=== PATIENT | female | born 1930 | race Caucasian/White ===

== ENCOUNTER 2017-06-24 23:46 | Inpatient (IN) | payer MEDICARE, MEDICAID ==
[2017-06-25 00:48] LABS: Bilirubin Negative (Negative); Blood, Urine Negative (Negative); Clarity TURBID (Clear); Glucose, Urine (Dipstick) Negative (Negative); Leukocyte Large (Negative); Nitrite Negative (Negative); Protein, Urine (Dipstick) > or equal to 300 mg/dL (Neg-Trace); Specific Gravity, Urine 1.017 (1.002-1.036); Urobilinogen 0.2 mg/dL (0.2-1.0); pH, Urine 8.5 (5.0-9.0)
[2017-06-25 00:49] LABS: Bacteria/HPF None Seen HPF (None Seen)
[2017-06-25 00:51] LABS: Pathc Cast-AUWi Flag 144.19 (0-2.49); Yeast-AUWi Flag 839.9 (0-25.0)
[2017-06-25 00:55] LABS: Yeast-All Forms None Seen HPF (None Seen)
[2017-06-25 00:57] LABS: Crystals/HPF 3+ TRIPLE PHOS HPF (Negative); Hyaline Casts/LPF 0-3 HYALINE CAST LPF (0-3 Hyaline); RBC/HPF 0-3 HPF (0-3); Renal Epithelial None Seen HPF (0-3); Transitional Epithelial NONE SEEN HPF (0-3)
[2017-06-25] MEDS ORDERED: Ondansetron ODT 4 MG TAB SL PRN (04:26)
[2017-06-25] MEDS ORDERED: Ondansetron HCl/PF 4 MG/2 ML Vial IVP PRN ×2 (04:26→07:16)
[2017-06-25] MEDS ORDERED: Sodium Chloride 0.9% 1,000 ML IV SCH (04:27)
[2017-06-25] MEDS: Carbidopa/Levodopa CR 50-200 mg Tablet PO SCH ×4 (07:00→21:13)
[2017-06-25] MEDS: Dextrose 5 %-0.45 % NaCl 1,000 ML IV SCH ×2 (07:10→21:10)
[2017-06-25] MEDS ORDERED: Senokot 8.6 MG TAB PO PRN (07:16)
[2017-06-25] MEDS ORDERED: Loratadine 10 MG TAB PO PRN (07:16)
[2017-06-25] MEDS ORDERED: Sodium Chloride 0.65% Nasal 44 ML BOT EA NARE PRN (07:16)
[2017-06-25] MEDS ORDERED: HYDROcodone/Acetaminophen 5/325 mg Tablet PO PRN (07:16)
[2017-06-25] MEDS ORDERED: Chloraseptic Spray 180 ml Bottle PO PRN (07:16)
[2017-06-25] MEDS ORDERED: cloNIDine 0.1 MG TAB PO PRN (07:16)
[2017-06-25] MEDS ORDERED: Diabetic Tussin 200 MG/10 ML UDCUP PO PRN (07:16)
[2017-06-25] MEDS ORDERED: Loperamide HCl 2 MG CAP PO PRN (07:16)
[2017-06-25] MEDS ORDERED: Simethicone Chewable 80 MG TAB PO PRN (07:16)
[2017-06-25] MEDS ORDERED: Eucerin (Mineral Oil/Petrolatum,White) 30 gm Jar TOP PRN (07:16)
[2017-06-25] MEDS ORDERED: Milk Of Magnesia 30 ML UDCUP PO PRN (07:16)
[2017-06-25] MEDS ORDERED: Ondansetron ODT 4 MG TAB PO PRN (07:16)
[2017-06-25] MEDS ORDERED: hydrALAZINE 20 MG/ML VIAL SLOW IVP PRN (07:16)
[2017-06-25] MEDS ORDERED: Mag-Al 1200 mg/1200 mg/30 ML UDCUP PO PRN (07:16)
[2017-06-25] MEDS ORDERED: Artificial Tears 18 DROP/0.9 ML EA EYE PRN (07:16)
[2017-06-25] MEDS ORDERED: Acetaminophen 325 MG TAB PO PRN (07:16)
[2017-06-25] MEDS ORDERED: traMADol HCl 50 MG TAB PO PRN (07:16)
[2017-06-25] MEDS ORDERED: Famotidine 20 MG TAB PO SCH (09:00)
--- NOTE | 2017-06-25 12:11 | HP ---
PRIMARY CARE PHYSICIAN: Dr. Marla Lay. REASON FOR ADMISSION: Transfer from [place] [facility] for altered mental status. HISTORY OF PRESENT ILLNESS: This is an 86-year-old female, who lives [facility] the [facility] in [place] . From there, she was taken to [facility] for altered mental status. The patient is no t able to provide any history. The patient was taken to [facility] and she was found wi th urinary tract infection. Based on lab testing, she was also found clinically dehydrated. Patient was hypertensive and febrile. She was saturating 88% on room air and temperature was 100.4 and bloo d pressure was 211/91. The patient was given Rocephin and vancomycin, and subsequently, this patient was transferred to our emergency room for admission. In our emergency room, patient was not able to provide any history. She was still hypertensive. Subsequently, this patient was admitted to [facility] floor. REVIEW OF SYSTEMS: All review of systems tried to review with the patient, but unable to review at t his point, because of altered mental status. ALLERGIES: ASPIRIN, PENICILLIN, PLAVIX, IODINE. The patient is not able to get MRI, because of metal above the left eye. CURRENT HOME MEDICATIONS: Lipitor 40 mg p.o. daily, carbidopa/levodopa 25/100 one tablet 3 times lio ly, Cardizem-CD 240 mg p.o. daily, Synthroid 88 mcg p.o. daily, digoxin 125 mcg p.o. daily, ferrous s ulfate 325 mg p.o. daily, MiraLax 17 grams p.o. daily, potassium chloride 20 mEq p.o. daily, vitamin D3 2000 units p.o. daily, Xarelto 20 mg p.o. daily, Remeron 15 mg p.o. daily, Aricept 5 mg p.o. daily , ranitidine 150 mg p.o. daily. PAST MEDICAL HISTORY: Osteoarthritis, osteoporosis, hypertension, atrial fibrillation, chronic antic oagulation, history of CVA, Parkinson's disease, dementia, hypothyroidism, dyslipidemia, gastroesopha geal reflux disease, chronic deconditioning. PAST SURGICAL HISTORY: Breast augmentation. Hip surgery. PAST PSYCHIATRIC HISTORY: Anxiety and depression. SOCIAL HISTORY: [facility]. No history of tobacco, alcohol, or illicit drug abus e. FAMILY HISTORY: No strong family history of premature coronary artery disease, stroke, or cancer. EMERGENCY ROOM COURSE: Patient is given vancomycin and Rocephin at [facility]. PHYSICAL EXAMINATION: VITAL SIGNS: On arrival to [place] [facility], blood pressure 211/91, pulse 77, respiratory rat e 24, temperature 100.4, saturation 88% on room air, weight 53.9 kilograms. GENERAL: Patient is currently hypertensive, ill-appearing, not following any command. HEENT: Head: Normocephalic, atraumatic. Eyes: Pupils round, reactive to light. No nystagmus. EN T: Dry mucous membrane, no oral lesion, no pharyngeal erythema, no exudate. NECK: Supple, no JVD, no thyromegaly, no carotid bruit, no jugular venous distention. LUNGS: Clear to auscultation, though air entry reduced on both sides at base. No wheeze, no rhonchi , no rales. No accessory muscles of respiration in use. CARDIAC: S1 and S2 appear regular. Pacemaker in place in right chest wall. ABDOMEN: Soft, bowel sounds present, nontender, nondistended. Bowel sounds present, no organomegaly , no mass. GENITOURINARY: Harrison catheter in place. BACK EXAMINATION: Unremarkable. No CVA tenderness. EXTREMITIES: Upper extremities, passive movement of all joints are normal. Lower extremities: Pass rell movement of all joints are normal. No edema. Good peripheral pulsation. SKIN: No skin rash. HEMATOLOGICAL SYSTEM: No lymphadenopathy. PSYCHIATRIC: Flat affect. NEUROLOGIC: She is moving all 4 limbs. Detailed neurological examination is not possible, because s he is not following any command. SIGNIFICANT LABORATORY DATA: EKG showing pacemaker rhythm. CT brain, based on my review, no acute i ntracranial process, age appropriate atrophy, chronic small vessel ischemic changes. Abdomen and pel vis CT scan showing moderate-sized hiatal hernia with thickening of the prasad of the stomach. Large amount of fecal material in colon, constipation, calcification of pancreatic head. Chest x-ray, base d on my review, no acute cardiopulmonary process, osteopenia, pacemaker in place. CBC: WBC 7.7, hemoglobin 14.9, platelet 278 with bandemia. VBG: pH 7.38, CO2 of 45.2, bicarbonate 26, O2 of 62.7. BMP: Sodium 143, potassium 4.8, chloride 10 6, carbon dioxide 27, anion gap 15, BUN 22, creatinine 0.99, glucose 128, calcium 10.1. Lactic acid 2.1. LFT: AST 23, ALT 7, alkaline phosphatase 68, albumin 3.7, CK-MB 1.9, troponin I 0.015. Urinalysis s uggestive of urinary tract infection. ASSESSMENT AND PLAN: 1. Acute encephalopathy, multifactorial etiology including urinary tract infection and dehydration. 2. Urinary tract infection. We will continue levofloxacin IV daily. Follow up on urine culture res ult and modify antibiotic therapy based on culture and sensitivity result. 3. Stercoral colitis with severe constipation. We will give her Fleet enema. 4. Moderate hiatal hernia with thickening wall of the stomach. We will continue Pepcid 20 mg IV b.i .d. 5. Parkinson's disease. Continue Sinemet-CR 25/100 one tablet q.i.d. 6. Dementia. Continue Aricept 5 mg p.o. at bedtime. 7. Atrial fibrillation, currently rate controlled. Continue digoxin 0.125 mg p.o. daily, Cardizem-C D 240 mg p.o. daily along with chronic anticoagulation with Xarelto 20 mg p.o. daily. 8. History of sick sinus syndrome with pacemaker. 9. Hypothyroidism. Continue Synthroid 88 mcg p.o. daily. 10. Dyslipidemia. Continue Lipitor 40 mg p.o. at bedtime. 11. Bandemia, likely related with underlying infection. 12. Dehydration. Patient will be given IV fluid with dextrose half-normal saline at 75 mL per hour. 13. Moderate protein-calorie malnutrition. The patient will be given nutritional supplement when pa nannt able to take p.o. 14. Deep venous thrombosis prophylaxis. Patient is already on Xarelto therapy. 15. Gastrointestinal prophylaxis. Pepcid 20 mg IV b.i.d. 16. Code status. At this point, the patient will be kept as a FULL CODE. Patient does not have any surrogate decision maker. The patient cannot provide any history at this point, so unable to confir m and that is why we will keep as a FULL CODE status. Disposition plan, based on clinical course. We are expecting patient's stay in hospital more than 2 midnights. Plan of care discussed with the patient in detail.
[2017-06-25] MEDS: Ferrous Sulfate 325 MG TAB PO SCH (14:45)
[2017-06-25] MEDS: Polyethylene Glycol 3350 17 GM Packet PO SCH (14:45)
[2017-06-25] MEDS: Potassium Chloride 20 MEQ TAB PO SCH ×2 (14:45)
[2017-06-25] MEDS: Digoxin 0.125 MG TAB PO SCH (14:46)
[2017-06-25] MEDS: Saccharomyces boulardii 250 MG CAP PO SCH (14:46)
[2017-06-25] MEDS: Rivaroxaban 10 MG TAB PO SCH (17:05)
[2017-06-25] MEDS: Acyclovir 800 mg Tablet PO SCH ×3 (17:05→21:13)
[2017-06-25] MEDS: Atorvastatin Calcium 40 MG TAB PO SCH (21:14)
[2017-06-25] MEDS: Famotidine/PF 20 mg/2ml Vial SLOW IVP SCH (21:14)
[2017-06-25] MEDS: Donepezil HCl 5 MG TAB PO SCH (21:14)
[2017-06-26] MEDS: Carbidopa/Levodopa CR 50-200 mg Tablet PO SCH ×4 (06:15→20:17)
[2017-06-26] MEDS: Levothyroxine Sodium 88 MCG TAB PO SCH (06:15)
[2017-06-26 06:29] LABS: #Basophils 0.1 thou/uL (0.0-0.2); #Eosinphils 0.4 thou/uL (0.0-0.7); #Lymphocytes 1.8 thou/uL (1.20-3.40); #Neutrophils 4.3 thou/uL (1.40-6.50); %Basophils 0.7 % (0.0-1.0); %Eosinophils 4.9 % (0.0-10.0); %Lymphocytes 23.9 % (21.0-51.0); %Monocytes 13.6 % (0.0-10.0); Hemoglobin 13.9 g/dL (12.0-16.0); Mean Corpuscular HGB CONC 31.7 g/dL (32.0-36.0); Mean Corpuscular Hemoglobin 30.3 pg (27.0-31.0); Mean Corpuscular Volume 95.4 fl (81.0-99.0); Mean Platelet Volume 9.2 fL (7.4-10.4); Platelet Count 256 thou/uL (130-400); RBC Distribution Width 13.4 % (11.5-14.5); Red Blood Cell (RBC) Count 4.59 mill/uL (4.20-5.40); White Blood Cell (WBC) Count 7.6 thou/uL (4.8-10.8)
[2017-06-26 06:45] LABS: Albumin 3.1 g/dL (3.4-4.8); Anion Gap 8 mmol/L (10-20); Calcium 8.9 mg/dL (7.8-10.44); Carbon Dioxide 29 mmol/L (23-31); Chloride 103 mmol/L (98-107); Globulin 2.7 g/dL (2.4-3.5); Glucose 128 mg/dL (83-110); Potassium 3.8 mmol/L (3.5-5.1); Protein, Total 5.8 g/dL (6.0-8.3); Sodium 136 mmol/L (136-145)
[2017-06-26 06:59] LABS: ALT (SGPT) 9 U/L (8-55); AST (SGOT) 12 U/L (5-34); Alkaline Phosphatase 47 U/L (40-150); BUN (Urea Nitrogen) 16 mg/dL (9.8-20.1); Bilirubin, Total 0.6 mg/dL (0.2-1.2); Calc. Creatinine Clearance 41 mL/min (70-130); Estimated GFR-MDRD 71
--- NOTE | 2017-06-26 10:30 | PDOC.PN ---
- Subjective Encounter Start Date: 06/26/17 Encounter Start Time: 09:10 -: old records requested/rev Patient seen and examined. No new complaints. No overnight events - Objective Resuscitation Status: Resuscitation Status DNR:Do Not Resuscitate MAR Reviewed: Yes Vital Signs & Weight: Vital Signs (12 hours) Temp Pulse Resp BP Pulse Ox 06/26/17 05:17 94 L 06/26/17 05:01 97.8 F 76 20 137/76 96 Weight Admit Weight 105 lb 9.6 oz Weight 111 lb 8 oz I&O: 06/25/17 06/26/17 06/27/17 06:59 06:59 06:59 Intake Total 1860 Output Total 675 Balance 1185 Result Diagrams: 06/26/17 05:59 06/26/17 05:59 EKG Reviewed by me: Yes Phys Exam - Physical Examination Constitutional: NAD HEENT: PERRLA, sclera anicteric dry MM Neck: no JVD, supple Respiratory: no wheezing, no rales, no rhonchi Cardiovascular: RRR, no significant murmur, no rub Gastrointestinal: soft, non-tender, no distention, positive bowel sounds Musculoskeletal: no edema, pulses present Neurological: moves all 4 limbs Lymphatic: no nodes Psychiatric: normal affect Skin: no rash, normal turgor Dx/Plan (1) UTI (urinary tract infection) Status: Acute (2) Dehydration Code(s): E86.0 - DEHYDRATION Status: Acute (3) Encephalopathy acute Code(s): G93.40 - ENCEPHALOPATHY, UNSPECIFIED Status: Acute (4) Protein-calorie malnutrition, moderate Code(s): E44.0 - MODERATE PROTEIN-CALORIE MALNUTRITION Status: Chronic (5) Physical deconditioning Code(s): R53.81 - OTHER MALAISE Status: Chronic (6) Paroxysmal atrial fibrillation Code(s): I48.0 - PAROXYSMAL ATRIAL FIBRILLATION Status: Chronic (7) Dementia Code(s): F03.90 - UNSPECIFIED DEMENTIA WITHOUT BEHAVIORAL DISTURBANCE Status: Chronic (8) GERD (gastroesophageal reflux disease) Code(s): K21.9 - GASTRO-ESOPHAGEAL REFLUX DISEASE WITHOUT ESOPHAGITIS Status: Chronic (9) H/O: CVA (cerebrovascular accident) Code(s): Z86.73 - PRSNL HX OF TIA (TIA), AND CEREB INFRC W/O RESID DEFICITS Status: Chronic (10) Hyperlipidemia Code(s): E78.5 - HYPERLIPIDEMIA, UNSPECIFIED Status: Chronic (11) Hypertension Code(s): I10 - ESSENTIAL (PRIMARY) HYPERTENSION Status: Chronic (12) Neuropathy Code(s): G62.9 - POLYNEUROPATHY, UNSPECIFIED Status: Chronic (13) Parkinson disease Code(s): G20 - PARKINSON'S DISEASE Status: Chronic - Plan cont current plan of care, horan catheter, continue antibiotics * continue gentle IVF * code status - DNR confirmed * continue IV levaquin * follow culture * diet as tolerated * medication reviewed as below * symptomatic treatment * continue selected home medication. Review of Systems - Review of Systems Other: unable to review due to severe dementia and encephalopathy - Medications/Allergies Allergies/Adverse Reactions: Allergies Allergy/AdvReac Type Severity Reaction Status Date / Time aspirin Allergy Severe Verified 07/20/16 13:09 Penicillins Allergy Severe Verified 07/20/16 13:09 clopidogrel bisulfate Allergy Verified 07/20/16 13:09 [From Plavix] Iodine and Iodide Containing Allergy Verified 07/20/16 13:09 Produc No MRI metal above left eye Allergy Uncoded 10/20/12 12:22 Medications: Current Medications Acetaminophen (Tylenol) 650 mg PO Q4H PRN PRN Reason: Headache/Fever or Pain Hydrocodone Bitart/Acetaminophen ([place] 5/325) 1 tab PO Q4H PRN PRN Reason: Moderate Pain (4-6) Acyclovir (Zovirax) 800 mg PO TID [facility] Last Admin: 06/25/17 21:13 Dose: 800 mg Al Hydroxide/Mg Hydroxide (Maalox) 30 ml PO Q6H PRN PRN Reason: Heartburn or Indigestion Artificial Tears (Tears Naturale) 0 drop EA EYE PRN PRN PRN Reason: Dry Eyes Atorvastatin Calcium (Lipitor) 40 mg PO HS [facility] Last Admin: 06/25/17 21:14 Dose: 40 mg Carbidopa/Levodopa (Sinemet Cr 50/200) 0.5 tab PO 0700,1200,1500,2100 [facility] Last Admin: 06/26/17 06:15 Dose: 0.5 tab Cholecalciferol (Vitamin D3) 2,000 units PO DAILY [facility] Last Admin: 06/25/17 14:46 Dose: 2,000 units Clonidine (Catapres) 0.1 mg PO BIDPRN PRN PRN Reason: sbp>180 Digoxin (Lanoxin) 0.125 mg PO DAILY [facility] Last Admin: 06/25/17 14:46 Dose: 0.125 mg Diltiazem HCl (Cardizem Cd) 240 mg PO DAILY [facility] Last Admin: 06/25/17 14:45 Dose: 240 mg Donepezil HCl (Aricept) 5 mg PO HS [facility] Last Admin: 06/25/17 21:14 Dose: 5 mg Famotidine (Pepcid) 20 mg SLOW IVP BID [facility] Last Admin: 06/25/17 21:14 Dose: 20 mg Ferrous Sulfate (Feosol) 325 mg PO QAM-WM [facility] Last Admin: 06/25/17 14:45 Dose: 325 mg Guaifenesin (Robitussin Sf) 200 mg PO Q4H PRN PRN Reason: Cough Hydralazine HCl (Apresoline) 10 mg SLOW IVP Q4H PRN PRN Reason: Systolic BP > 180 Dextrose/Sodium Chloride (D5 1/2 Ns) 1,000 mls @ 75 mls/hr IV .[id number] [facility] Last Admin: 06/25/17 21:10 Dose: 1,000 mls Levofloxacin 500 mg/ Device 100 mls @ 100 mls/hr IVPB 0800 [facility] Last Admin: 06/25/17 09:45 Dose: 100 mls Levothyroxine Sodium (Synthroid) 88 mcg PO 0600 [facility] Last Admin: 06/26/17 06:15 Dose: 88 mcg Loperamide HCl (Imodium) 2 mg PO PRN PRN PRN Reason: Diarrhea/Loose Stools Loratadine (Claritin) 10 mg PO DAILYPRN PRN PRN Reason: Sinus Symptoms Magnesium Hydroxide (Milk Of Magnesium) 30 ml PO DAILYPRN PRN PRN Reason: Constipation Mineral Oil/White Petrolatum (Eucerin Cream) 0 gm TOP BIDPRN PRN PRN Reason: Dry Skin Ondansetron HCl (Zofran Odt) 4 mg PO Q6H PRN PRN Reason: Nausea/Vomiting Ondansetron HCl (Zofran) 4 mg IVP Q6H PRN PRN Reason: Nausea/Vomiting Phenol (Chloraseptic [place] 180 Ml Bot) 0 ml PO PRN PRN PRN Reason: Sore Throat Polyethylene Glycol (Miralax) 17 gm PO DAILY [facility] Last Admin: 06/25/17 14:45 Dose: 17 gm Potassium Chloride (K-Dur) 20 meq PO 0800 [facility] Last Admin: 06/25/17 14:45 Dose: 20 meq Rivaroxaban (Xarelto) 20 mg PO 1700 [facility] Last Admin: 06/25/17 17:05 Dose: 20 mg Saccharomyces Boulardii (Florastor) 250 mg PO DAILY [facility] Last Admin: 06/25/17 14:46 Dose: 250 mg Senna (Senokot) 2 tab PO HSPRN PRN PRN Reason: Constipation Simethicone (Mylicon Chewable) 80 mg PO Q6H PRN PRN Reason: Gas Pain Sodium Chloride ([place] Nasal [place] 0.65%) 0 ml EA NARE QIDPRN PRN PRN Reason: Nasal Congestion Tramadol HCl (Ultram) 50 mg PO Q6H PRN PRN Reason: Pain
[2017-06-26] MEDS: Dextrose 5 %-0.45 % NaCl 1,000 ML IV SCH (10:49)
[2017-06-26] MEDS: Polyethylene Glycol 3350 17 GM Packet PO SCH (10:55)
[2017-06-26] MEDS: Potassium Chloride 20 MEQ TAB PO SCH ×2 (11:00)
[2017-06-26] MEDS: Ferrous Sulfate 325 MG TAB PO SCH (11:00)
[2017-06-26] MEDS: Saccharomyces boulardii 250 MG CAP PO SCH (11:00)
[2017-06-26] MEDS: Digoxin 0.125 MG TAB PO SCH (11:01)
[2017-06-26] MEDS: Famotidine/PF 20 mg/2ml Vial SLOW IVP SCH (11:07)
[2017-06-26] MEDS: Acyclovir 800 mg Tablet PO SCH ×3 (11:08→20:17)
[2017-06-26] MEDS: Rivaroxaban 10 MG TAB PO SCH (19:12)
[2017-06-26] MEDS: Donepezil HCl 5 MG TAB PO SCH (20:17)
[2017-06-26] MEDS: Atorvastatin Calcium 40 MG TAB PO SCH (20:17)
[2017-06-27] MEDS: Dextrose 5 %-0.45 % NaCl 1,000 ML IV SCH ×2 (01:39→14:13)
[2017-06-27] MEDS: Levothyroxine Sodium 88 MCG TAB PO SCH (05:26)
[2017-06-27] MEDS: Carbidopa/Levodopa CR 50-200 mg Tablet PO SCH ×4 (05:58→21:28)
[2017-06-27] MEDS: Polyethylene Glycol 3350 17 GM Packet PO SCH (09:16)
[2017-06-27] MEDS: Acyclovir 800 mg Tablet PO SCH ×3 (09:16→21:29)
[2017-06-27] MEDS: Digoxin 0.125 MG TAB PO SCH (09:17)
[2017-06-27] MEDS: Potassium Chloride 20 MEQ TAB PO SCH ×2 (09:17)
[2017-06-27] MEDS: Ferrous Sulfate 325 MG TAB PO SCH (09:17)
[2017-06-27] MEDS: Saccharomyces boulardii 250 MG CAP PO SCH (09:17)
[2017-06-27] MEDS: Famotidine 20 MG TAB PO SCH (09:18)
--- NOTE | 2017-06-27 11:31 | PDOC.PN ---
- Subjective Encounter Start Date: 06/27/17 Encounter Start Time: 09:00 Patient seen and examined. No new complaints. No overnight events pt is more alert today - Objective Resuscitation Status: Resuscitation Status DNR:Do Not Resuscitate MAR Reviewed: Yes Vital Signs & Weight: Vital Signs (12 hours) Temp Pulse Resp BP Pulse Ox 06/27/17 09:26 99.0 F 74 20 98 06/27/17 09:17 74 06/27/17 09:06 99.0 F 71 20 171/72 H 99 06/27/17 05:22 99.4 F 74 18 159/74 H 96 06/27/17 05:00 96 Weight Admit Weight 105 lb 9.6 oz Weight 113 lb 9.6 oz I&O: 06/26/17 06/27/17 06/28/17 06:59 06:59 06:59 Intake Total 1860 1260 Output Total 675 450 Balance 1185 810 Result Diagrams: 06/26/17 05:59 06/26/17 05:59 EKG Reviewed by me: Yes Phys Exam - Physical Examination Constitutional: NAD HEENT: PERRLA, moist MMs, sclera anicteric Neck: no JVD, supple Respiratory: no wheezing, no rales, no rhonchi Cardiovascular: RRR, no significant murmur, no rub Gastrointestinal: soft, non-tender, no distention, positive bowel sounds Musculoskeletal: no edema, pulses present Neurological: non-focal, normal sensation Lymphatic: no nodes Psychiatric: normal affect Skin: no rash, normal turgor Dx/Plan (1) UTI (urinary tract infection) Status: Acute (2) Dehydration Code(s): E86.0 - DEHYDRATION Status: Acute (3) Encephalopathy acute Code(s): G93.40 - ENCEPHALOPATHY, UNSPECIFIED Status: Acute (4) Protein-calorie malnutrition, moderate Code(s): E44.0 - MODERATE PROTEIN-CALORIE MALNUTRITION Status: Chronic (5) Physical deconditioning Code(s): R53.81 - OTHER MALAISE Status: Chronic (6) Paroxysmal atrial fibrillation Code(s): I48.0 - PAROXYSMAL ATRIAL FIBRILLATION Status: Chronic (7) Dementia Code(s): F03.90 - UNSPECIFIED DEMENTIA WITHOUT BEHAVIORAL DISTURBANCE Status: Chronic (8) GERD (gastroesophageal reflux disease) Code(s): K21.9 - GASTRO-ESOPHAGEAL REFLUX DISEASE WITHOUT ESOPHAGITIS Status: Chronic (9) H/O: CVA (cerebrovascular accident) Code(s): Z86.73 - PRSNL HX OF TIA (TIA), AND CEREB INFRC W/O RESID DEFICITS Status: Chronic (10) Hyperlipidemia Code(s): E78.5 - HYPERLIPIDEMIA, UNSPECIFIED Status: Chronic (11) Hypertension Code(s): I10 - ESSENTIAL (PRIMARY) HYPERTENSION Status: Chronic (12) Neuropathy Code(s): G62.9 - POLYNEUROPATHY, UNSPECIFIED Status: Chronic (13) Parkinson disease Code(s): G20 - PARKINSON'S DISEASE Status: Chronic - Plan cont current plan of care, continue antibiotics * DC tele * transfer to medical * continue empiric antibiotics * so far culture negative. * medication reviewed as below * symptomatic treatment * eventual placement to snu when stable Review of Systems - Review of Systems Other: not reliable due to her level of cognitive status - Medications/Allergies Allergies/Adverse Reactions: Allergies Allergy/AdvReac Type Severity Reaction Status Date / Time aspirin Allergy Severe Verified 07/20/16 13:09 Penicillins Allergy Severe Verified 07/20/16 13:09 clopidogrel bisulfate Allergy Verified 07/20/16 13:09 [From Plavix] Iodine and Iodide Containing Allergy Verified 07/20/16 13:09 Produc No MRI metal above left eye Allergy Uncoded 10/20/12 12:22 Medications: Current Medications Acetaminophen (Tylenol) 650 mg PO Q4H PRN PRN Reason: Headache/Fever or Pain Hydrocodone Bitart/Acetaminophen ([place] 5/325) 1 tab PO Q4H PRN PRN Reason: Moderate Pain (4-6) Acyclovir (Zovirax) 800 mg PO TID [facility] Last Admin: 06/27/17 09:16 Dose: 800 mg Al Hydroxide/Mg Hydroxide (Maalox) 30 ml PO Q6H PRN PRN Reason: Heartburn or Indigestion Artificial Tears (Tears Naturale) 0 drop EA EYE PRN PRN PRN Reason: Dry Eyes Atorvastatin Calcium (Lipitor) 40 mg PO HS [facility] Last Admin: 06/26/17 20:17 Dose: 40 mg Carbidopa/Levodopa (Sinemet Cr 50/200) 0.5 tab PO 0700,1200,1500,2100 [facility] Last Admin: 06/27/17 05:58 Dose: 0.5 tab Cholecalciferol (Vitamin D3) 2,000 units PO DAILY [facility] Last Admin: 06/27/17 09:18 Dose: 2,000 units Clonidine (Catapres) 0.1 mg PO BIDPRN PRN PRN Reason: sbp>180 Digoxin (Lanoxin) 0.125 mg PO DAILY [facility] Last Admin: 06/27/17 09:17 Dose: 0.125 mg Diltiazem HCl (Cardizem Cd) 240 mg PO DAILY [facility] Last Admin: 06/27/17 09:17 Dose: 240 mg Donepezil HCl (Aricept) 5 mg PO HS [facility] Last Admin: 06/26/17 20:17 Dose: 5 mg Famotidine (Pepcid) 20 mg PO DAILY [facility] Last Admin: 06/27/17 09:18 Dose: 20 mg Ferrous Sulfate (Feosol) 325 mg PO QA-[facility] Last Admin: 06/27/17 09:17 Dose: 325 mg Guaifenesin (Robitussin Sf) 200 mg PO Q4H PRN PRN Reason: Cough Hydralazine HCl (Apresoline) 10 mg SLOW IVP Q4H PRN PRN Reason: Systolic BP > 180 Dextrose/Sodium Chloride (D5 1/2 Ns) 1,000 mls @ 75 mls/hr IV .[id number] [facility] Last Admin: 06/27/17 01:39 Dose: 1,000 mls Levofloxacin 500 mg/ Device 100 mls @ 100 mls/hr IVPB 0800 [facility] Last Admin: 06/27/17 09:19 Dose: 100 mls Levothyroxine Sodium (Synthroid) 88 mcg PO 0600 [facility] Last Admin: 06/27/17 05:26 Dose: 88 mcg Loperamide HCl (Imodium) 2 mg PO PRN PRN PRN Reason: Diarrhea/Loose Stools Loratadine (Claritin) 10 mg PO DAILYPRN PRN PRN Reason: Sinus Symptoms Magnesium Hydroxide (Milk Of Magnesium) 30 ml PO DAILYPRN PRN PRN Reason: Constipation Mineral Oil/White Petrolatum (Eucerin Cream) 0 gm TOP BIDPRN PRN PRN Reason: Dry Skin Ondansetron HCl (Zofran Odt) 4 mg PO Q6H PRN PRN Reason: Nausea/Vomiting Ondansetron HCl (Zofran) 4 mg IVP Q6H PRN PRN Reason: Nausea/Vomiting Phenol (Chloraseptic [place] 180 Ml Bot) 0 ml PO PRN PRN PRN Reason: Sore Throat Polyethylene Glycol (Miralax) 17 gm PO DAILY [facility] Last Admin: 06/27/17 09:16 Dose: 17 gm Potassium Chloride (K-Dur) 20 meq PO 0800 [facility] Last Admin: 06/27/17 09:17 Dose: 20 meq Rivaroxaban (Xarelto) 20 mg PO 1700 [facility] Last Admin: 06/26/17 19:12 Dose: 20 mg Saccharomyces Boulardii (Florastor) 250 mg PO DAILY [facility] Last Admin: 06/27/17 09:17 Dose: 250 mg Senna (Senokot) 2 tab PO HSPRN PRN PRN Reason: Constipation Simethicone (Mylicon Chewable) 80 mg PO Q6H PRN PRN Reason: Gas Pain Sodium Chloride ([place] Nasal [place] 0.65%) 0 ml EA NARE QIDPRN PRN PRN Reason: Nasal Congestion Sodium Chloride (Flush - Normal Saline) 10 ml IVF Q12HR [facility] Last Admin: 06/27/17 09:19 Dose: Not Given Sodium Chloride (Flush - Normal Saline) 10 ml IVF PRN PRN PRN Reason: Saline Flush Tramadol HCl (Ultram) 50 mg PO Q6H PRN PRN Reason: Pain
[2017-06-27] MEDS: Rivaroxaban 10 MG TAB PO SCH (16:04)
[2017-06-27] MEDS: Atorvastatin Calcium 40 MG TAB PO SCH (21:28)
[2017-06-27] MEDS: Donepezil HCl 5 MG TAB PO SCH (21:29)
[2017-06-28] MEDS: Levothyroxine Sodium 88 MCG TAB PO SCH (05:19)
[2017-06-28] MEDS: Dextrose 5 %-0.45 % NaCl 1,000 ML IV SCH ×2 (05:20→17:10)
[2017-06-28] MEDS: Carbidopa/Levodopa CR 50-200 mg Tablet PO SCH ×4 (06:01→21:04)
[2017-06-28] MEDS: Potassium Chloride 20 MEQ TAB PO SCH ×2 (08:33)
[2017-06-28] MEDS: Ferrous Sulfate 325 MG TAB PO SCH (08:33)
[2017-06-28] MEDS: Famotidine 20 MG TAB PO SCH (08:33)
[2017-06-28] MEDS: Acyclovir 800 mg Tablet PO SCH ×3 (08:34→21:04)
[2017-06-28] MEDS: Digoxin 0.125 MG TAB PO SCH (08:35)
[2017-06-28] MEDS: Saccharomyces boulardii 250 MG CAP PO SCH (08:35)
[2017-06-28] MEDS: Polyethylene Glycol 3350 17 GM Packet PO SCH (08:36)
[2017-06-28 10:43] VITALS: BMI 19.5
--- NOTE | 2017-06-28 10:58 | PQF ---
CLINICAL DOCUMENTATION IMPROVEMENT CLARIFICATION FORM: ICD-10 Updated PLEASE DO AN ADDENDUM TO THE PROGRESS NOTE WITH ANY DOCUMENTATION UPDATES OR ADDITIONS AND CARRY THROUGH TO DC SUMMARY. THANK YOU. DATE: 06/28/17 ATTN: Dr. Osorio Please exercise your independent, professional judgment in responding to the clarification form. Clinical indicators are provided on the bottom of this form for your review Please check appropriate box(es): [ x ] Sepsis due to: UTI [ ] SIRS due to non-infectious process (please specify etiology) [ ] with organ dysfunction [ ] without organ dysfunction [ ] Severe sepsis with acute organ dysfunction of: (Examples: respiratory failure, encephalopathy, other) [ ] Localized infection without sepsis [ ] Other diagnosis [ ] Unable to determine In addition, please specify: Present on Admission (POA): [ ] Yes [ ] No [ x ] Unable to determine For continuity of documentation, please document condition throughout progress notes and discharge summary. Thank You. CLINICAL INDICATORS - SIGNS / SYMPTOMS / LABS H&P: PT TAKEN TO [facility] & FOUND WITH UTI. SHE WAS SATURATING 88% ON RA & TEMPERATURE WAS 100.4 & BP 211/91. THE PT WAS GIVEN ROCEPHIN & VANCOMYCIN, & TRANSFERRED TO OUR ER FOR ADMISSION. BP 211/91, PULSE 77, RESP 24 LACTIC ACID 2.1 BANDEMIA, LIKELY RELATED WITH UNDERLYING INFECTION RISKS: H&P: 86 YRS. LIVES IN [facility]. HX OF CVA, HYPERTENSION, PARKINSON'S DISEASE. ASSESSMENT: ACUTE ENCEPHALOPATHY, MULTIFACTORIAL ETIOLOGY, INCLUDING UTI & DEHYDRATION. MODERATE PROTEIN-CALORIE MALNUTRITION. TREATMENT: H&P: THE PT WAS GIVEN ROCEPHIN & VANCOMYCIN, & TRANS. TO OUR ER FOR ADMISSION. CPOE: 06/25: LEVAQUIN 500MG IV Thank you, [place] (This form is maintained as a part of the permanent medical record) 2014 [employer]. All Rights Reserved [address] RN, ROBERT [email or web address] Office: [phone] [facility]
--- NOTE | 2017-06-28 12:06 | PDOC.PN ---
- Subjective Encounter Start Date: 06/28/17 Encounter Start Time: 12:07 Patient seen and examined, no new issues per nursing staff. - Objective Resuscitation Status: Resuscitation Status DNR:Do Not Resuscitate Vital Signs & Weight: Vital Signs (12 hours) Temp Pulse Resp BP BP Pulse Ox 06/28/17 11:11 98.3 F 74 18 154/68 H 96 06/28/17 08:35 76 06/28/17 08:34 76 165/84 H 06/28/17 08:00 97.8 F 76 14 97 06/28/17 07:48 97.8 F 76 14 155/79 H 97 06/28/17 04:00 97.6 F 75 20 167/75 H 98 Weight Admit Weight 105 lb 9.6 oz Weight 113 lb 9.6 oz I&O: 06/27/17 06/28/17 06/29/17 06:59 06:59 06:59 Intake Total 1260 1764 Output Total 450 400 Balance 810 1364 Result Diagrams: 06/26/17 05:59 06/26/17 05:59 Phys Exam - Physical Examination Constitutional: NAD HEENT: PERRLA, moist MMs, sclera anicteric Neck: no nodes, no JVD, supple Respiratory: no wheezing, no rales, no rhonchi Cardiovascular: RRR, no significant murmur, no rub Gastrointestinal: soft, non-tender, no distention Musculoskeletal: no edema, pulses present Dx/Plan (1) Dehydration Code(s): E86.0 - DEHYDRATION Status: Acute (2) Physical deconditioning Code(s): R53.81 - OTHER MALAISE Status: Chronic (3) UTI (urinary tract infection) Status: Acute (4) Neuropathy Code(s): G62.9 - POLYNEUROPATHY, UNSPECIFIED Status: Chronic (5) Parkinson disease Code(s): G20 - PARKINSON'S DISEASE Status: Chronic (6) Paroxysmal atrial fibrillation Code(s): I48.0 - PAROXYSMAL ATRIAL FIBRILLATION Status: Chronic - Plan * Continue current plan of care for now * cultures pending * DC plans once patient stable and C&S available * likely DC to SNF? * No family at bedside
[2017-06-28 17:53] LABS: INR-International Normal Ratio 1.4; Prothrombin Time 17.3 SEC (12.0-14.7)
[2017-06-28] MEDS: Rivaroxaban 10 MG TAB PO SCH (18:05)
[2017-06-28] MEDS ORDERED: hydrALAZINE 20 MG/ML VIAL SLOW IVP PRN (18:24)
--- NOTE | 2017-06-28 18:25 | RAD ---
SINGLE VIEW OF THE ABDOMEN: 06/28/17 COMPARISON: CT abdomen/pelvis 06/24/17. HISTORY: Abdominal pain. FINDINGS: Single view of the abdomen shows a nonspecific, nonobstructed bowel gas pattern. Air and stool are se en in the rectum. Vertebroplasty cement is seen in the spine. Calcifications are seen in the aorta. T he patient has hardware in the right femur. IMPRESSION: Nonobstructive bowel gas pattern. POS: MONICA
[2017-06-28] MEDS ORDERED: Acetaminophen 650 MG Suppository PR PRN (18:26)
[2017-06-28] MEDS: Donepezil HCl 5 MG TAB PO SCH (21:04)
[2017-06-28] MEDS: Atorvastatin Calcium 40 MG TAB PO SCH (21:04)
[2017-06-29 04:55] LABS: #Eosinphils 0.3 thou/uL (0.0-0.7); #Lymphocytes 1.7 thou/uL (1.20-3.40); #Monocytes 0.9 thou/uL (0.11-0.59); %Basophils 0.5 % (0.0-1.0); %Eosinophils 4.4 % (0.0-10.0); %Monocytes 10.8 % (0.0-10.0); %Neutrophils 63.4 % (42.0-75.0); Hemoglobin 12.6 g/dL (12.0-16.0); Mean Corpuscular HGB CONC 32.5 g/dL (32.0-36.0); Mean Corpuscular Hemoglobin 30.7 pg (27.0-31.0); Mean Corpuscular Volume 94.5 fl (81.0-99.0); Mean Platelet Volume 9.3 fL (7.4-10.4); Platelet Count 255 thou/uL (130-400); RBC Distribution Width 13.5 % (11.5-14.5); White Blood Cell (WBC) Count 7.9 thou/uL (4.8-10.8)
[2017-06-29 05:11] LABS: ALT (SGPT) Less than 7 U/L (8-55); AST (SGOT) 13 U/L (5-34); Albumin 2.7 g/dL (3.4-4.8); Alkaline Phosphatase 46 U/L (40-150); Anion Gap 9 mmol/L (10-20); BUN (Urea Nitrogen) 7 mg/dL (9.8-20.1); Bilirubin, Total 0.7 mg/dL (0.2-1.2); Calc. Creatinine Clearance 47 mL/min (70-130); Calcium 8.2 mg/dL (7.8-10.44); Carbon Dioxide 24 mmol/L (23-31); Chloride 102 mmol/L (98-107); Estimated GFR-MDRD 80; Globulin 2.3 g/dL (2.4-3.5); Glucose 104 mg/dL (83-110); Sodium 132 mmol/L (136-145)
[2017-06-29 05:14] LABS: Potassium 2.9 mmol/L (3.5-5.1)
[2017-06-29] MEDS: Levothyroxine Sodium 88 MCG TAB PO SCH (05:35)
[2017-06-29] MEDS: Dextrose 5 %-0.45 % NaCl 1,000 ML IV SCH (05:35)
[2017-06-29] MEDS ORDERED: Potassium Chloride 20 MEQ in Sodium Chloride 0.9% 250 ML 250 ML IVPB SCH (06:00)
[2017-06-29] MEDS: Carbidopa/Levodopa CR 50-200 mg Tablet PO SCH ×3 (06:12→14:33)
[2017-06-29 07:18] VITALS: TEMP 97.8
[2017-06-29] MEDS: Famotidine 20 MG TAB PO SCH (09:06)
[2017-06-29] MEDS: Polyethylene Glycol 3350 17 GM Packet PO SCH (09:06)
[2017-06-29] MEDS: Ferrous Sulfate 325 MG TAB PO SCH (09:07)
[2017-06-29] MEDS: Acyclovir 800 mg Tablet PO SCH ×2 (09:07→14:34)
[2017-06-29] MEDS: Saccharomyces boulardii 250 MG CAP PO SCH (09:07)
[2017-06-29] MEDS: Digoxin 0.125 MG TAB PO SCH (09:07)
[2017-06-29] MEDS: Potassium Chloride 20 MEQ TAB PO SCH ×2 (09:07)
[2017-06-29] MEDS ORDERED: Potassium Chloride 40 MEQ in Premix Bag 1 BAG IVPB SCH (11:15)
[2017-06-29] MEDS ORDERED: Potassium Chloride 40 MEQ, Admixture Fee 1 EACH in Sodium Chloride 0.9% 250 ML 250 ML IVPB SCH (11:30)
[2017-06-29 13:04] VITALS: BP 131/58
--- NOTE | 2017-06-29 15:01 | DIS ---
DATE OF ADMISSION: 06/25/2017 DATE OF DISCHARGE: 06/29/2017 ADMITTING COMPLAINT: Acute encephalopathy, altered mental status, osteoporosis, hypertension, atrial fibrillation, history of cerebrovascular accident, Parkinson's disease, dementia, hypothyroidism, dy slipidemia, gastroesophageal reflux disease, and chronic deconditioning. DISCHARGE DIAGNOSES: Acute encephalopathy, multifactorial, urinary tract infection, osteoarthritis, hypertension, atrial fibrillation stable, history of cerebrovascular accident stable, Parkinson's dis ease stable, dementia stable, hypertension stable, dyslipidemia stable, gastroesophageal reflux dise ase stable, chronic deconditioning, stable. HOSPITAL COURSE: This is an 86-year-old female admitted to the Internal Medicine Team from [facility] for change in mental status. The patient was found to have Corynebacterium, gram negative cindy, U TI. At time of admission, she was started on antibiotic. The patient's vital signs were monitored c losely at point in time of discharge. The patient had potassium of 2.9; however, she had replacement potassium being given to her and repeats to be done at the [facility] for further followup and car e. Hemoglobin was stable. Patient's condition slowly improved and was presumptive baseline upon justino e of discharge. No family at bedside. The patient is to go to her [facility] and follow up with rafaela spencer primary care doctor, therefore further management taken care. DISPOSITION: [facility]. MEDICATIONS: See JUN. Prescription for Levaquin given 250 daily for 7 days for UTI. DIET: Low fat, low calorie, high fiber diet. ACTIVITY: As tolerated with assistance. CONDITION: Stable. PROGNOSIS: Good. DISPOSITION: Guarded. Follow up with PCP in 5-7 days.
== END 2017-06-29 16:59 | DRG 640 ==
LOC: ERS 23:46 → 2NO 06-25 03:11 → T4-B 06-27 20:10
PROVIDERS: ADMIT Internal Medicine; ATTEND Internal Medicine
DX: E86.0 Dehydration (principal); G93.40 Encephalopathy, unspecified; K52.89 Other specified noninfective gastroenteritis and colitis; E44.0 Moderate protein-calorie malnutrition; G20 Parkinson's disease; G62.9 Polyneuropathy, unspecified; I48.0 Paroxysmal atrial fibrillation; E78.5 Hyperlipidemia, unspecified; E03.9 Hypothyroidism, unspecified; N39.0 Urinary tract infection, site not specified; B96.89 Other specified bacterial agents as the cause of diseases classified elsewhere; F02.80 Dementia in other diseases classified elsewhere, unspecified severity, without behavioral disturbance, psychotic disturbance, mood disturbance, and anxiety; I10 Essential (primary) hypertension; M19.91 Primary osteoarthritis, unspecified site; Z86.73 Personal history of transient ischemic attack (TIA), and cerebral infarction without residual deficits; K21.9 Gastro-esophageal reflux disease without esophagitis; Z66 Do not resuscitate; M81.0 Age-related osteoporosis without current pathological fracture; Z79.01 Long term (current) use of anticoagulants; F41.9 Anxiety disorder, unspecified; F32.9 Major depressive disorder, single episode, unspecified; Z95.0 Presence of cardiac pacemaker; K59.00 Constipation, unspecified
CPT/HCPCS: 36415; 36416; 74018; 80053; 81003; 85025; 85610; 87086; 93005; A4216; G8978-GP-CM; G8979-GP-CL; G8987-GO-CM; G8988-GO-CJ; G8996-GN-CK; G8997-GN-CI; J0360; J1956; J3480; J7050; S0028